=== PATIENT | male | born 1960 | race Caucasian/White ===

== ENCOUNTER → 2019-12-15 | Outpatient (CLI) | payer OTHER ==
[~2019-12-15] MED LIST: BENA25CA4 PO; LISI10TA4 PO
== END ==
LOC: M LABSMTC 11:18
PROVIDERS: ATTEND Anesthesiology
DX: Z01.818 Encounter for other preprocedural examination (principal); Z11.59 Encounter for screening for other viral diseases

== ENCOUNTER 2019-12-16 11:03 | Day surgery (SDC) | payer OTHER ==
[~2019-12-16] VITALS: Ht 177.8 cm; Wt 80.3 kg
[~2019-12-16 11:03] MED LIST changes: +LIDOCAINE 2% 100MG/5ML SDV (FOR ANES.) As Ordered ONE; +NS 1,000 ML IV ONE; +propofoL 200 MG/20 ML VIAL As Ordered ONE
[2019-12-16] MEDS ORDERED: propofoL 200 MG/20 ML VIAL As Ordered ONE (12:12)
[2019-12-16] MEDS ORDERED: PHENYLephrine HCL 500 MCG/5 ML (100MCG/ML) SYRINGE (J2370) As Ordered ONE (12:13)
--- NOTE | 2019-12-16 12:20 | ROOR ---
Patient Name: Michael Bliss Procedure Date: 12/16/2019 12:00 PM Date of : 1960 Age: 59 Room: [facility] Gender: Male Note Status: Finalized Procedure: Total Colonoscopy to Cecum Indications: High risk colon cancer surveillance: Personal history of colonic polyps, Last colonoscopy 10 years ago Providers: Bentley Rodriguez MD Referring MD: [facility] [place], [facility], Admin. Requesting Provider: Medicines: Monitored Anesthesia Care Complications: No immediate complications. Procedure: Pre-Anesthesia Assessment: - The heart rate, respiratory rate, oxygen saturations, blood pressure, adequacy of pulmonary ventilation, and response to care were monitored throughout the procedure. The Colonoscope was introduced through the anus and advanced to the cecum, identified by appendiceal orifice and ileocecal valve. The colonoscopy was performed without difficulty. The patient tolerated the procedure well. The quality of the bowel preparation was good. Findings: The perianal and digital rectal examinations were normal. Non-bleeding internal hemorrhoids were found during retroflexion. The hemorrhoids were small and Grade I (internal hemorrhoids that do not prolapse). Multiple small and large-mouthed diverticula were found in the recto-sigmoid colon, sigmoid colon and descending colon. The exam was otherwise without abnormality on direct and retroflexion views. Impression: - Non-bleeding internal hemorrhoids. - Diverticulosis in the recto-sigmoid colon, in the sigmoid colon and in the descending colon. - The examination was otherwise normal on direct and retroflexion views. - No specimens collected. - The exam was otherwise normal to the cecum. Recommendation: - Patient has a contact number available for emergencies. The signs and symptoms of potential delayed complications were discussed with the patient. Return to normal activities tomorrow. Written discharge instructions were provided to the patient. - High fiber diet. - Discharge patient to home. - Continue present medications. - Repeat colonoscopy in 7 years for surveillance. - Return to referring physician. - The findings and recommendations were discussed with the patient's family. Bentley Rodriguez MD Bentley Rodriguez MD 12/16/2019 12:19:59 PM Electronically signed by Bentley Rodriguez MD Number of Addenda: 0 Note Initiated On: 12/16/2019 12:00 PM Estimated Blood Loss: Estimated blood loss: none.
[2019-12-16 12:45] VITALS: BP 137/70
== END 2019-12-16 12:52 | disposition home or self-care (01) ==
LOC: M OPP 11:03
PROVIDERS: ATTEND Internal Medicine Gastroenterology
DX: Z12.11 Encounter for screening for malignant neoplasm of colon (principal); Z86.010 Personal history of colon polyps; K64.0 First degree hemorrhoids; K57.30 Diverticulosis of large intestine without perforation or abscess without bleeding; I10 Essential (primary) hypertension; Z79.899 Other long term (current) drug therapy
CPT/HCPCS: G0105; J2370

== ENCOUNTER 2021-01-19 11:00 | Emergency (ER) | payer OTHER ==
[~2021-01-19] VITALS: Ht 177.8 cm; Wt 84.1 kg
[~2021-01-19 11:00] MED LIST changes: -LIDOCAINE 2% 100MG/5ML SDV (FOR ANES.) As Ordered ONE; +LISI10TA22 PO; -LISI10TA4 PO; -NS 1,000 ML IV ONE; -propofoL 200 MG/20 ML VIAL As Ordered ONE
[2021-01-19 11:47] LABS: BASO % 0.7 % (0.0-1.0); EOS # 0.4 10^3/uL (0.0-0.5); EOS % 6.6 % (0.0-3.0); HEMATOCRIT 47.7 % (42.0-52.0); HEMOGLOBIN 15.9 g/dl (13.5-17.5); LYMPH # 1.9 10^3/uL (1.5-5.0); LYMPH % 32.4 % (24.0-44.0); MEAN CORPUSCULAR HEMOGLOBIN 31.6 pg (27.0-33.0); MEAN CORPUSCULAR HGB CONC 33.3 g/dl (32.0-36.5); MEAN CORPUSCULAR VOLUME 94.8 fl (80.0-96.0); MONO # 0.7 10^3/uL (0.0-0.8); MONO % 11.4 % (2.0-8.0); NEUTROPHILS # 2.9 10^3/uL (1.5-8.5); NEUTROPHILS % 48.6 % (36.0-66.0); PLATELET COUNT, AUTOMATED 232 10^3/uL (150-450); RED BLOOD COUNT 5.03 10^6/uL (4.30-6.10); WHITE BLOOD COUNT 5.9 10^3/uL (4.0-10.0)
--- NOTE | 2021-01-19 11:50 | REP ---
INDICATION: CHEST PAIN COMPARISON: None. TECHNIQUE: Portable AP view of the chest FINDINGS: The mediastinum and cardiac silhouette are within normal limits for portable technique. The lung escamilla are clear without acute consolidation, effusion, or pneumothorax. Skeletal structures are intact. IMPRESSION: No acute cardiopulmonary process appreciated. <Electronically signed by Carlos Melchor > 01/19/21 1145
[2021-01-19] MEDS: METOPROLOL 5 MG/5 ML VIAL IV SCH ×2 (12:23→12:34)
[2021-01-19 12:26] LABS: ALBUMIN 4.2 GM/DL (3.2-5.2); ALT/SGPT 78 U/L (12-78); BILIRUBIN,DIRECT 0.2 MG/DL (0.0-0.2); BILIRUBIN,TOTAL 0.8 MG/DL (0.2-1.0); BLOOD UREA NITROGEN 18 MG/DL (7-18); CARBON DIOXIDE LEVEL 27 MEQ/L (21-32); CHLORIDE LEVEL 102 MEQ/L (98-107); CPK CREATINE PHOSPHOKINASE 97 U/L (39-308); CREATININE FOR GFR 0.97 MG/DL (0.70-1.30); FREE T4 0.92 NG/DL (0.76-1.46); GLOMERULAR FILTRATION RATE > 60.0 (>49); GLUCOSE, FASTING 116 MG/DL (70-100); LIPASE 104 U/L (73-393); MAGNESIUM LEVEL 1.9 MG/DL (1.8-2.4); MB/CK RELATIVE INDEX 2.06 (< OR =4); NT-PRO BNP 714 PG/ML (<125); POTASSIUM SERUM 4.7 MEQ/L (3.5-5.1); SODIUM LEVEL 136 MEQ/L (136-145); TOTAL PROTEIN 7.4 GM/DL (6.4-8.2); TROPONIN I 0.09 NG/ML (< 0.10)
[2021-01-19 12:59] LABS: INR 0.93; PROTHROMBIN TIME 12.7 SECONDS (12.5-14.3)
[2021-01-19 13:00] LABS: PARTIAL THROMBOPLASTIN TIME 23.7 SECONDS (24.2-38.5)
[2021-01-19] MEDS ORDERED: METOPROLOL TART 25 MG TABLET PO ONE (13:00)
[2021-01-19] MEDS ORDERED: PILL CUTTER 1 EACH XX ONE (13:35)
[2021-01-19 13:38] VITALS: BP 103/65
[2021-01-19] MEDS ORDERED: ASPIRIN 81 MG CHEW TABLET PO ONE (13:55)
[2021-01-19] MEDS ORDERED: ATEN25TA PO ×2 (13:55→14:50)
[2021-01-19] MEDS ORDERED: DIGOXIN 0.25 MG TAB PO ONE (13:55)
[2021-01-19] MEDS ORDERED: DIGO0.253 PO ×2 (13:55→14:50)
[2021-01-19 14:30] VITALS: BP 107/80
--- NOTE | 2021-01-19 20:02 | ECGEPIP ---
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
== END 2021-01-19 14:52 | disposition home or self-care (01) ==
LOC: M ED 11:00
DX: I48.91 Unspecified atrial fibrillation (principal); R94.31 Abnormal electrocardiogram [ECG] [EKG]; I10 Essential (primary) hypertension; Z98.890 Other specified postprocedural states; Z91.048 Other nonmedicinal substance allergy status

== ENCOUNTER → 2021-03-09 | Outpatient (CLI) | payer OTHER ==
[~2021-03-09] MED LIST changes: +ATEN25TA PO; +DIGO0.253 PO
--- NOTE | 2021-03-10 13:01 | SLEEPCENT ---
DATE: 03/09/2021 ORDERED BY: GALLITO Young Nocturnal polysomnography was performed for evaluation of sleep physiology in this patient with concern for the obstructive sleep apnea syndrome. Seven hours and 30 minutes of data were reviewed. There were 355.5 minutes of sleep identified. Sleep latency was prolonged at 35 minutes. REM sleep latency was quite prolonged at 301.5 minutes. Sleep architecture showed poor progression throughout the early portions of the study and periods of wake. There were two REM cycles noted. Overall sleep efficiency was 80.2%. The electrocardiogram showed a sinus rhythm with an average heart rate of 65 beats per minute. EEG showed some coarsening in background but otherwise normal waveforms for wake and sleep stages. No focal events were identified. There were 25 respiratory events identified of 10 seconds in duration or greater for an apnea-hypopnea index of 5.2. The events were obstructive, more frequent in non-REM, not associated with specific body posture. Significant snoring was also appreciated and respiratoryrelated arousals occurred 2.5 times per hour. Oxygen saturations were maintained at 90% +. There was some limb activity noted throughout the study. However, arousals from the events were few at 3.4. IMPRESSION: Mild obstructive sleep apnea syndrome (G47.33). Apnea-hypopnea index 5.2. RECOMMENDATION: If the patient is experiencing symptoms of obstructive sleep apnea syndrome, referral back to the [facility] for pressure therapy would be reasonable. In the interim, alcohol and sedative avoidance should be practiced and caution exercised during the operation of motor vehicles.
== END ==
LOC: M SLEEP 20:00
PROVIDERS: ATTEND Nurse Practitioner Family
DX: G47.33 Obstructive sleep apnea (adult) (pediatric) (principal)

== ENCOUNTER 2023-07-10 06:18 | Day surgery (SDC) | payer OTHER ==
[~2023-07-10] VITALS: Ht 177.8 cm; Wt 88.6 kg
[~2023-07-10 06:18] MED LIST changes: +ATOR1TAB21 PO; +ELIQ5TAB PO; +FLUO20CA22 PO; +LIDOCAINE W/EPINEPHRINE 1% 20ML VIAL XX ONE; +LISI10TA24 PO; +METF500T13 PO; +METO25TA4 PO; +SODIUM BICARBONATE 8.4% INJ 50MEQ 50ML VIAL XX ONE
[2023-07-10] MEDS ORDERED: SODIUM BICARBONATE 8.4% INJ 50MEQ 50ML VIAL As Ordered ONE (07:19)
[2023-07-10] MEDS ORDERED: LIDOCAINE W/EPINEPHRINE 1% 20ML VIAL As Ordered ONE (07:19)
[2023-07-10] MEDS ORDERED: BACITRACIN OINTMENT 30GM TUBE As Ordered ONE (07:19)
[2023-07-10 08:09] VITALS: BP 100/73; TEMP 97.6; O2SAT 94
== END 2023-07-10 08:24 | disposition home or self-care (01) ==
LOC: M SDC 06:18
PROVIDERS: ATTEND Orthopaedic Surgery Hand Surgery
DX: M72.0 Palmar fascial fibromatosis [Dupuytren] (principal); Z79.899 Other long term (current) drug therapy; I10 Essential (primary) hypertension; E11.9 Type 2 diabetes mellitus without complications; F32.A Depression, unspecified; Z79.84 Long term (current) use of oral hypoglycemic drugs; Z79.01 Long term (current) use of anticoagulants

== ENCOUNTER → 2025-05-27 | Outpatient (CLI) | payer OTHER ==
[~2025-05-27] MED LIST changes: +FLUO-365 PO; -FLUO20CA22 PO; -LIDOCAINE W/EPINEPHRINE 1% 20ML VIAL XX ONE; -SODIUM BICARBONATE 8.4% INJ 50MEQ 50ML VIAL XX ONE
== END ==
LOC: M SLEEP 20:00
PROVIDERS: ATTEND Family Medicine
DX: G47.33 Obstructive sleep apnea (adult) (pediatric) (principal)